=== PATIENT | male | born 1960 | race Caucasian/White ===

== ENCOUNTER 2017-04-16 11:16 | Emergency (ER) | payer BC ==
[2017-04-16 13:07] VITALS: BP 146/74
[2017-04-16] MEDS ORDERED: Albuterol HFA INHALER* 8 gm MDI INH ONE (13:27)
--- NOTE | 2017-04-16 13:35 | UC ---
Respiratory Complaint HPI - HPI Summary HPI Summary: 56 yo male with cough x 2 weeks wheezing Hx EIA as child worried re whooping cough no CP or sob no n/v/d - History of Current Complaint Chief Complaint: UCGeneralIllness Stated Complaint: COUGH, SORE THROAT Time Seen by Provider: 04/16/17 13:14 Hx Obtained From: Patient Onset/Duration: Gradual Onset, Lasting Weeks Timing: Constant Severity Initially: Mild Severity Currently: Mild Pain Intensity: 2 Pain Scale Used: 0-10 Numeric Character: Cough: Nonproductive Aggravating Factors: Exertion, Deep Breaths, Recumbent Position Alleviating Factors: Nothing Associated Signs And Symptoms: Positive: Wheezing Related History: Similar Episode/Dx as: - bronchitis - Allergies/Home Medications Allergies/Adverse Reactions: Allergies Allergy/AdvReac Type Severity Reaction Status Date / Time Lidocaine AdvReac hypotensive Verified 04/16/17 13:08 PMH/Surg Hx/FS Hx/Imm Hx Previously Healthy: Yes Respiratory History: Asthma - EIA as child - Surgical History Surgical History: None - Family History Known Family History: Positive: Cardiac Disease, Hypertension - Social History Alcohol Use: Weekly Substance Use Type: None Smoking Status (MU): Never Smoked Tobacco Review of Systems Constitutional: Negative Skin: Negative Eyes: Negative ENT: Negative Respiratory: Cough Cardiovascular: Negative Gastrointestinal: Negative Genitourinary: Negative Motor: Negative Neurovascular: Negative Musculoskeletal: Negative Neurological: Negative Psychological: Negative Is Patient Immunocompromised?: No All Other Systems Reviewed And Are Negative: Yes Physical Exam Triage Information Reviewed: Yes Appearance: Well-Appearing, No Pain Distress, Well-Nourished Vital Signs: Initial Vital Signs Temp 98 F 04/16/17 13:02 Pulse 56 04/16/17 13:02 Resp 16 04/16/17 13:02 BP 146/74 04/16/17 13:02 Pulse Ox 98 04/16/17 13:02 Vital Signs Reviewed: Yes Eye Exam: Normal Eyes: Positive: Conjunctiva Clear ENT: Positive: Hearing grossly normal, TMs normal, Uvula midline. Negative: Nasal congestion, Nasal drainage, Tonsillar swelling, Tonsillar exudate, Trismus , Muffled voice, Hoarse voice Neck: Positive: Supple, Nontender, No Lymphadenopathy Respiratory: Positive: Normal breath sounds, No respiratory distress, No accessory muscle use, Wheezing - with forced expiration Cardiovascular: Positive: RRR, No Murmur Musculoskeletal: Positive: ROM Intact, No Edema Neurological: Positive: Alert, Muscle Tone Normal Psychological Exam: Normal Skin Exam: Normal UC Diagnostic Evaluation - Laboratory O2 Sat by Pulse Oximetry: 98 - normal/not hypoxic Respiratory Course/Dx - Differential Dx/Diagnosis Provider Diagnoses: acute bronchitis with bronchospasm Discharge - Discharge Plan Condition: Stable Disposition: HOME Prescriptions: Azithromycin TAB* [Zithromax TAB*] 250 mg PO DAILY #6 tab Prednisone [Deltasone] 40 mg PO DAILY #10 tab Patient Education Materials: Acute Bronchitis (ED) Additional Instructions: use inhaler as directed test for whooping cough pending recheck in 4-5 days if not better
--- NOTE | 2017-04-19 07:42 | UC ---
Progress - Progress Note Progress Note: cecile Laurent no change [facility] 04/19/17
== END 2017-04-16 13:50 | disposition home or self-care (01) ==
LOC: UCEAST 11:16
DX: J20.9 Acute bronchitis, unspecified (principal)
CPT/HCPCS: 87798; 99212; A9270-GY; G0463

== ENCOUNTER 2018-08-28 16:14 | Emergency (ER) | payer BC ==
[2018-08-28 17:18] VITALS: BP 152/73
[2018-08-28] MEDS ORDERED: Ibuprofen TAB* 600 MG PO ONE (17:40)
[2018-08-28 18:06] LABS: Influenza A Molecular NEGATIVE (Negative); Influenza B Molecular NEGATIVE (Negative)
--- NOTE | 2018-08-28 18:17 | UC ---
Respiratory Complaint HPI - HPI Summary HPI Summary: 2 DAYS OF FEVER, CHILLS, COUGH AND EAR PAIN. HAS SORE THROAT AND PAIN WITH SWALLOWING. DENIES ANY NASAL CONGESTION OR RHINITIS. FEELS A BIT SHORT OF BREATH AND STATES HE IS UNABLE TO TAKE DEEP BREATHS WITHOUT COUGHING. UP-TO- DATE FLU SHOT THIS SEASON. TOOK TYLENOL 5 HOURS AGO. - History of Current Complaint Chief Complaint: UCRespiratory Stated Complaint: SORE THROAT, AND CHEST CONGESTION Time Seen by Provider: 08/28/18 17:39 Hx Obtained From: Patient Onset/Duration: Gradual Onset, Lasting Days, Still Present Timing: Constant Severity Initially: Moderate Severity Currently: Moderate Pain Intensity: 0 Pain Scale Used: 0-10 Numeric Character: Cough: Nonproductive Aggravating Factors: Deep Breaths Alleviating Factors: Nothing Associated Signs And Symptoms: Positive: Dyspnea, Fever, Chills. Negative: Wheezing, Nasal Congestion - Allergies/Home Medications Allergies/Adverse Reactions: Allergies Allergy/AdvReac Type Severity Reaction Status Date / Time lidocaine Allergy See Comment Verified 08/28/18 17:19 Home Medications: Home Medications Acetaminophen PED LIQ* [Tylenol PED LIQ UDC*] 500 mg PO 08/28/18 [History] PMH/Surg Hx/FS Hx/Imm Hx Previously Healthy: Yes - Surgical History Surgical History: None - Family History Known Family History: Positive: Cardiac Disease, Hypertension - Social History Alcohol Use: Weekly Substance Use Type: None Smoking Status (MU): Never Smoked Tobacco Review of Systems All Other Systems Reviewed And Are Negative: Yes Constitutional: Positive: Fever, Chills, Fatigue ENT: Positive: Sore Throat, Ear Ache. Negative: Nasal Discharge Respiratory: Positive: Shortness Of Breath, Cough Cardiovascular: Positive: Negative Gastrointestinal: Positive: Negative Physical Exam Triage Information Reviewed: Yes Appearance: Well-Appearing, No Pain Distress, Well-Nourished Vital Signs: Initial Vital Signs Temp 102 F 08/28/18 17:15 Pulse 91 08/28/18 17:15 Resp 18 08/28/18 17:15 BP 152/73 08/28/18 17:15 Pulse Ox 99 08/28/18 17:15 Laboratory Tests 08/28/18 08/28/18 17:52 17:54 Influenza A (Rapid) Negative Influenza B (Rapid) Negative Group A Strep Rapid Negative Vital Signs Reviewed: Yes Eyes: Positive: Conjunctiva Clear ENT: Positive: Hearing grossly normal, Pharyngeal erythema, TMs normal, Other - SMALL ULCERATION LEFT TONSIL. Negative: Nasal congestion, Tonsillar swelling Neck: Positive: Supple, No Lymphadenopathy, Tenderness @ - SPFL CERVICAL Respiratory Exam: Normal Cardiovascular Exam: Normal Abdomen Description: Positive: Soft Musculoskeletal: Positive: No Edema Neurological: Positive: Alert Psychological: Positive: Age Appropriate Behavior Skin: Negative: Rashes Diagnostics - Radiology CXR Radiology Interpretation Completed By: ED Physician Summary of Radiographic Findings: UNREMARKABLE Respiratory Course/Dx - Differential Dx/Diagnosis Provider Diagnosis: Acute viral syndrome Discharge - Sign-Out/Discharge Documenting (check all that apply): Patient Departure All imaging exams completed and their final reports reviewed: No - Discharge Plan Condition: Stable Disposition: HOME Patient Education Materials: Viral Syndrome (ED) Referrals: Richard Hernandez MD [Primary Care Provider] - If Needed Additional Instructions: STREP NEGATIVE. FLU NEGATIVE. CXR TODAY UNREMARKABLE ON MY INITIAL INTERPRETATION. WE WILL CALL YOU TOMORROW IF THE RADIOLOGY READ DIFFERS. YOUR SYMPTOMS ARE LIKELY VIRALLY MEDIATED AND SHOULD RESOLVE ON THEIR OWN WITH TIME. NO INDICATION FOR ANTIBIOTICS AT PRESENT. REST, HYDRATE, OTC MEDS NEEDED. SEEK FOLLOW-UP IF YOU ARE NOT IMPROVING OVER THE NEXT 1-2 WEEKS. - Billing Disposition and Condition Condition: STABLE Disposition: Home
--- NOTE | 2018-08-29 12:47 | UC ---
- Progress Note Progress Note: RADIOLOGY REPORT REVIEWED. NO EVIDENCE FOR ACTIVE CARDIOPULMONARY DISEASE. NO CHANGE IN MGMT. Course/Dx - Diagnoses Provider Diagnoses: Acute viral syndrome Discharge - Sign-Out/Discharge Documenting (check all that apply): Post-Discharge Follow Up All imaging exams completed and their final reports reviewed: Yes - Discharge Plan Condition: Stable Disposition: HOME Patient Education Materials: Viral Syndrome (ED) Referrals: Richard Hernandez MD [Primary Care Provider] - If Needed Additional Instructions: STREP NEGATIVE. FLU NEGATIVE. CXR TODAY UNREMARKABLE ON MY INITIAL INTERPRETATION. WE WILL CALL YOU TOMORROW IF THE RADIOLOGY READ DIFFERS. YOUR SYMPTOMS ARE LIKELY VIRALLY MEDIATED AND SHOULD RESOLVE ON THEIR OWN WITH TIME. NO INDICATION FOR ANTIBIOTICS AT PRESENT. REST, HYDRATE, OTC MEDS NEEDED. SEEK FOLLOW-UP IF YOU ARE NOT IMPROVING OVER THE NEXT 1-2 WEEKS. - Billing Disposition and Condition Condition: STABLE Disposition: Home
== END 2018-08-28 19:20 | disposition home or self-care (01) ==
LOC: UCEAST 16:14
DX: B34.9 Viral infection, unspecified (principal); R06.02 Shortness of breath; R50.9 Fever, unspecified; R05 Cough; Z88.4 Allergy status to anesthetic agent
CPT/HCPCS: 71046; 87651; 99211; A9270-GY; G0463